=== PATIENT | female | born 1995 | race Two or more races ===

== ENCOUNTER 2019-04-14 10:38 | Inpatient (IN) | payer OTHER ==
[~2019-04-14] VITALS: Ht 167.6 cm; Wt 90.7 kg
[2019-05-14] MEDS ORDERED: PRENATAL TABLE1 EAC1 PO (03:09)
[2019-05-15] MEDS ORDERED: RHOGAM ULTR1500 UNIT IM (14:44)
== END 2019-05-16 11:55 | disposition home or self-care (01) | DRG 807 ==
LOC: OB/GYN 04-21 11:45 → LDR 05-14 02:25 → OB/GYN 05-14 10:44
PROVIDERS: ADMIT Specialist
PROC: 10E0XZZ Delivery of Products of Conception, External Approach (ICD-10-PCS; principal; 2019-05-14)
PROC: 10907ZC Drainage of Amniotic Fluid, Therapeutic from Products of Conception, Via Natural or Artificial Opening (ICD-10-PCS; 2019-05-14)
PROC: 0W8NXZZ Division of Female Perineum, External Approach (ICD-10-PCS; 2019-05-14)
PROC: 4A1HXCZ Monitoring of Products of Conception, Cardiac Rate, External Approach (ICD-10-PCS; 2019-05-14)
DX: O80 Encounter for full-term uncomplicated delivery (principal); Z37.0 Single live birth; Z3A.39 39 weeks gestation of pregnancy

== ENCOUNTER 2021-08-03 21:53 | Emergency (ER) | payer OTHER ==
[~2021-08-03] VITALS: Ht 167.6 cm; Wt 81.6 kg
[~2021-08-03 21:53] MED LIST: PRENATAL TABLE1 EAC1 PO; RHOGAM ULTR1500 UNIT IM
[2021-08-04] MEDS ORDERED: ZOFRAN4 MG PO (05:02)
[2021-08-04] MEDS ORDERED: CEPHALEXIN500 MG PO (05:02)
[2021-08-04] MEDS ORDERED: PEPCID40 MG PO (05:02)
== END 2021-08-04 05:11 ==
LOC: ER 21:53
DX: O23.41 Unspecified infection of urinary tract in pregnancy, first trimester (principal); O21.8 Other vomiting complicating pregnancy; N39.0 Urinary tract infection, site not specified; Z3A.08 8 weeks gestation of pregnancy

== ENCOUNTER 2022-02-21 12:30 | Inpatient (IN) | payer OTHER ==
[~2022-02-21] VITALS: Ht 167.6 cm; Wt 93.0 kg
[~2022-02-21 12:30] MED LIST changes: +CEPHALEXIN500 MG PO; +PEPCID40 MG PO; +ZOFRAN4 MG PO
[2022-03-02] MEDS ORDERED: PRENATAL TABLE1 EAC3 PO (06:41)
== END 2022-03-04 15:59 | disposition home or self-care (01) | DRG 807 ==
LOC: OB/GYN 03-02 05:20 → LDR 03-02 05:20 → OB/GYN 03-02 10:20
PROVIDERS: ADMIT Specialist; ATTEND Specialist
PROC: 10E0XZZ Delivery of Products of Conception, External Approach (ICD-10-PCS; principal; 2022-03-02)
PROC: 4A1HXFZ Monitoring of Products of Conception, Cardiac Rhythm, External Approach (ICD-10-PCS; 2022-03-02)
PROC: 10907ZC Drainage of Amniotic Fluid, Therapeutic from Products of Conception, Via Natural or Artificial Opening (ICD-10-PCS; 2022-03-02)
PROC: 0UQMXZZ Repair Vulva, External Approach (ICD-10-PCS; 2022-03-02)
DX: O71.82 Other specified trauma to perineum and vulva (principal); Z37.0 Single live birth; Z3A.38 38 weeks gestation of pregnancy